=== PATIENT | male | born 1975 ===

== ENCOUNTER 2018-10-08 11:48 | Outpatient (REF) | payer OTHER, SELFPAY ==
[2018-10-08 21:30] LABS: Abs Immature Grans 0.02 k/cumm (0.0-0.09); Absolute Basophil Count 0.03 k/cumm (0.0-0.2); Absolute Eosinophil Count 0.15 k/cumm (0.0-0.7); Absolute Lymphocyte Count 1.85 k/cumm (1.2-3.4); Absolute Monocyte Count 0.66 k/cumm (0.11-0.7); Absolute Neutrophil Count 5.87 k/cumm (1.2-6.7); Basophils % 0.3; Eosinophils % 1.7; HCT 43.9 % (40.0-50.0); HGB 14.4 g/dL (13.5-17.5); Immature Grans % 0.2; Lymphocytes % 21.6; Mean Corp. HGB Concentration 32.8 g/dL (32.0-36.0); Mean Corpuscular Hemoglobin 29.6 pg (27.0-33.0); Mean Corpuscular Volume 90.1 fL (80-95); Mean Platelet Volume 10.6 fL (8.0-11.0); Monocytes % 7.7; Neutrophils % 68.5; Platelet Count 278 x1000/uL (130-400); RBC 4.87 m/cumm (4.50-6.00); RBC Distribution Width 12.9 % (11.8-14.1); White Blood Cell Count 8.58 k/cumm (4.4-10.8)
[2018-10-08 22:42] LABS: ALT 23 U/L (12-78); AST 15 U/L (15-37); Alkaline Phosphatase 71 U/L (46-116); Anion Gap 11.5 mmol/L (3-11); BUN 16 mg/dL (7-18); Bilirubin, Total 0.5 mg/dL (0.2-1.0); CO2 24.5 mmol/L (21.0-32.0); CREATININE 0.85 mg/dL (0.70-1.30); Calcium 9.6 mg/dL (8.5-10.1); Chloride 102 mmol/L (98-107); Glucose 106 mg/dL (70-100); Potassium 4.9 mmol/L (3.5-5.1); Sodium 138 mmol/L (136-145); TSH 0.63 uIU/mL (0.358-3.74); Total Protein 7.4 g/dL (6.4-8.2)
== END 2018-10-08 12:08 ==
LOC: NCHCN 11:48
PROVIDERS: Visit Provider Nurse Practitioner Family
DX: R19.7 Diarrhea, unspecified (principal); K62.89 Other specified diseases of anus and rectum
CPT/HCPCS: 80053; 84443; 85025

== ENCOUNTER 2021-04-26 14:56 | Outpatient (REF) | payer OTHER, SELFPAY ==
[2021-04-26 16:08] LABS: Hemoglobin A1C 5.6 % (<5.7)
[2021-04-26 16:18] LABS: Calculated LDL 137 mg/dL (<100); Cholesterol 235 mg/dL (<200); HDL Cholesterol 58 mg/dL (40-60); Triglyceride 202 mg/dL (<150)
== END 2021-04-26 14:57 | disposition home or self-care (01) ==
LOC: NCHCN 14:56
PROVIDERS: Visit Provider Family Medicine
DX: Z00.8 Encounter for other general examination (principal)
CPT/HCPCS: 80061; 83036